=== PATIENT | female | born 1975 | race Caucasian/White ===

== ENCOUNTER 2023-12-09 07:00 | Outpatient (CLI) | payer MEDICAID, OTHER ==
[2023-12-09 20:51] LABS: BILIRUBIN,URINE NEGATIVE (NEGATIVE); GLUCOSE, URINE (UA) NEGATIVE (NEGATIVE); KETONES,URINE (UA) 15 mg/dL (NEGATIVE); LEUKOCYTE ESTERASE, URINE NEGATIVE (NEGATIVE); NITRITE,URINE NEGATIVE (NEGATIVE); OCCULT BLOOD,URINE NEGATIVE (NEGATIVE); PROTEIN,URINE NEGATIVE (NEGATIVE); UROBILINOGEN,URINE 0.2 (NORMAL) E.U./dL (NORMAL)
[2023-12-09 20:59] LABS: CLARITY,URINE CLEAR (CLEAR)
[2023-12-09 21:01] LABS: BACTERIA,URINE Moderate /HPF (None Seen); RBC,URINE 0-5 /HPF (0-5); SQUAMOUS EPITHELIAL CELL,UR MOD Squamous (<= Few); WBC,URINE 0-3 /HPF (0-5)
== END 2023-12-09 23:59 | disposition home or self-care (01) ==
LOC: LAB.S 07:00
PROVIDERS: ATTEND Physician Assistant Medical
DX: N39.0 Urinary tract infection, site not specified (principal); Z91.89 Other specified personal risk factors, not elsewhere classified
CPT/HCPCS: 81001; 87086; 87181

== ENCOUNTER 2023-12-28 10:43 | Emergency (ER) | payer OTHER ==
[2023-12-28 11:24] LABS: BILIRUBIN,URINE NEGATIVE (NEGATIVE); GLUCOSE, URINE (UA) NEGATIVE (NEGATIVE); KETONES,URINE (UA) 15 mg/dL (NEGATIVE); LEUKOCYTE ESTERASE, URINE MODERATE (NEGATIVE); NITRITE,URINE POSITIVE (NEGATIVE); OCCULT BLOOD,URINE TRACE-INTA (NEGATIVE); PROTEIN,URINE NEGATIVE (NEGATIVE); UROBILINOGEN,URINE 0.2 (NORMAL) E.U./dL (NORMAL)
[2023-12-28 11:28] LABS: CLARITY,URINE HAZY (CLEAR); HCG UR QUAL NEGATIVE
[2023-12-28 11:30] LABS: BASOPHILS # (AUTO) 0.1 10^3/uL (0.0-0.1); BASOPHILS % (AUTO) 0.4 %; EOSINOPHILS % (AUTO) 0.1 %; HCT - HEMATOCRIT 38.1 % (37.0-47.0); HGB - HEMOGLOBIN 12.5 g/dL (12.0-16.0); LYMPHOCYTES # (AUTO) 1.4 10^3/uL (1.5-3.5); LYMPHOCYTES % (AUTO) 12.2 %; MEAN CORPUSCULAR HGB CONC 32.8 g/dL (32.0-36.0); MEAN CORPUSCULAR VOLUME 91.4 fL (81.0-99.0); MEAN PLATELET VOLUME 9.1 fL (7.9-10.8); MONOCYTES # (AUTO) 0.8 10^3/uL (0.0-1.0); MONOCYTES % (AUTO) 6.7 %; NEUTROPHILS # (AUTO) 9.4 10^3/uL (1.5-6.6); NEUTROPHILS % (AUTO) 80.2 %; PLT - PLATELET COUNT 308 10^3/uL (130-450); RED BLOOD COUNT 4.17 10^6/uL (4.20-5.40); RED CELL DISTRIBUTION WIDTH 12.7 % (12.0-15.0); WHITE BLOOD COUNT 11.8 x10^3/uL (4.8-10.8)
[2023-12-28 11:33] LABS: RBC,URINE 0-5 /HPF (0-5); SQUAMOUS EPITHELIAL CELL,UR RARE Squamous (<= Few)
[2023-12-28 11:34] LABS: BACTERIA,URINE Moderate /HPF (None Seen)
[2023-12-28 11:43] LABS: ALBUMIN 4.7 g/dL (3.2-5.5); ALBUMIN/GLOBULIN RATIO 1.7 (1.0-2.2); ALKALINE PHOSPHATASE 47 IU/L (42-121); ALT ALANINE AMINOTRANSFERASE 21 IU/L (10-60); AST ASPARTATE AMINOTRANSFERASE 14 IU/L (10-42); BILIRUBIN,TOTAL 0.6 mg/dL (0.2-1.0); BUN - BLOOD UREA NITROGEN 7 mg/dL (6-20); CALCIUM 9.8 mg/dL (8.5-10.3); CARBON DIOXIDE - CO2 28 mmol/L (21-32); CHLORIDE 102 mmol/L (101-111); CREATININE 0.8 mg/dL (0.6-1.3); GFR - MDRD 77 (>89); GLUCOSE 109 mg/dL (74-104); LIPASE < 10 U/L (11-82); POTASSIUM 3.6 mmol/L (3.5-4.5); SODIUM 137 mmol/L (135-145); TOTAL PROTEIN 7.5 g/dL (6.4-8.9)
--- NOTE | 2023-12-28 13:08 | ED Physician Documentation ---
PD HPI ABD PAIN - Stated complaint Stated Complaint: LOWER BACK PX, ABD PX,FEVER - Chief complaint Chief Complaint: Abd Pain - History obtained from History obtained from: Patient - History of Present Illness Timing - onset: How many weeks ago (3) Timing - duration: Weeks (3) Timing - details: Gradual onset, Still present, Waxing and waning (did not im prove with initial abx nor second one. Was improving moderately with current cefdinir, but not better than moderately. Now worse flank pain and nausea.) Quality: Cramping, Aching, Pain Location: RLQ, Suprapubic Radiation: Right flank Associated symptoms: Nausea, Dysuria, Loss of appetite. No: Fever, Vomiting, Diarrhea, Vaginal bleeding, Vaginal dc Similar symptoms before: Diagnosis Recently seen: Clinic (initially telehealth visit with Rx for Bactrim by description of symptoms. Seen PCP with persisting symptoms andf Rx Augmentin with culture ordered. This showed resistance to AMpicillin and Bactrim. Rx Cefdinir and was some better but now worse again. Just finished abx yesterday.) Review of Systems Constitutional: reports: Chills, Myalgias, Fatigue Nose: denies: Rhinorrhea / runny nose, Congestion Throat: denies: Sore throat Respiratory: denies: Cough GI: reports: Abdominal Pain. denies: Nausea, Vomiting, Diarrhea : reports: Dysuria, Frequency. 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[employer]ICAL: Hysterectomy - Present Medications Home Medications: Ambulatory Orders Medication Instructions Recorded Confirmed Ciprofloxacin HCl [Cipro] 500 mg PO BID #20 tablet 12/28/23 Ondansetron Odt [Zofran] 4 mg TL Q6H PRN #10 tablet 12/28/23 Oxycodone HCl/Acetaminophen 1 each PO Q6H PRN #10 tablet 12/28/23 [Percocet 5-325 mg Tablet] Phenazopyridine HCl [Pyridium] 100 mg PO TID PRN #15 tablet 12/28/23 Promethazine [Phenergan] 25 mg PO Q6H PRN #10 tab 12/28/23 - Allergies Allergies/Adverse Reactions: Allergies Allergy/AdvReac Type Severity Reaction Status Date / Time No Known Drug Allergies Allergy Verified 12/28/23 10:59 - Social History Does the pt smoke?: No Smoking Status: Never smoker Does the pt drink ETOH?: No Does the pt have substance abuse?: Yes Substance Use and Type: Marijuana, CBD oil / Products - Immunizations Immunizations are current?: Yes - POLST Patient has POLST: No PD ED PE NORMAL - Vitals Vital signs reviewed: Yes - General General: Alert and oriented X 3, Well developed/nourished, Other (appears in moderately bad pain from right abd/flank area. ) - HEENT HEENT: Pharynx benign - Neck Neck: Supple, no meningeal sign, No adenopathy - Cardiac Cardiac: RRR, No murmur - Respiratory Respiratory: Clear bilaterally - Abdomen Abdomen: Normal bowel sounds, Soft, Non distended, No organomegaly, Other (tender suprapubic area and right flank to percussion. ) Results - Vitals Vitals: Oxygen O2 Source Room air - Labs Labs: Microbiology 12/28/23 11:05 Urine Culture - Preliminary Urine,Random Escherichia Coli Laboratory Tests 12/28/23 12/28/23 12/28/23 11:05 11:23 11:23 WBC 11.8 H RBC 4.17 L Hgb 12.5 Hct 38.1 MCV 91.4 MCH 30.0 MCHC 32.8 RDW 12.7 Plt Count 308 MPV 9.1 Neut # (Auto) 9.4 H Lymph # (Auto) 1.4 L [place] # (Auto) 0.8 Eos # (Auto) 0.0 Baso # (Auto) 0.1 Absolute Nucleated RBC 0.00 Nucleated RBC % 0.0 Sodium 137 Potassium 3.6 Chloride 102 Carbon Dioxide 28 Anion Gap 7.0 BUN 7 Creatinine 0.8 Estimated GFR (MDRD) 77 L Glucose 109 H Calcium 9.8 Total Bilirubin 0.6 AST 14 ALT 21 Alkaline Phosphatase 47 Total Protein 7.5 Albumin 4.7 Globulin 2.8 Albumin/Globulin Ratio 1.7 Lipase < 10 L Urine Color YELLOW Urine Clarity HAZY Urine pH 7.0 Ur Specific [place] <=1.005 Urine Protein NEGATIVE Urine Glucose (UA) NEGATIVE Urine Ketones 15 H Urine Occult Blood TRACE-INTA Urine Nitrite POSITIVE H Urine Bilirubin NEGATIVE Urine Urobilinogen 0.2 (NORMAL) Ur Leukocyte Esterase MODERATE H Urine RBC 0-5 Urine WBC 11-25 H Ur Squamous Epith Cells RARE Squamous Urine Bacteria Moderate H Ur Microscopic Review INDICATED Urine Culture Comments INDICATED Urine HCG, Qual NEGATIVE - Rads (name of study) abd/pelvic CT Relevant Findings:: Prelim report reviewed (ascending UTI with hydroureter and hydronephrosis without stone/obstruction. No other acute findings. ), EMP independent interpretation of test PD Medical Decision Making - ED course Complexity details: reviewed results (right hydroureter and nephrosis without stone, c/w ascending UTI. No other acute process. ), re-evaluated patient (improved pain with meds but got very nauseated from them. Has mild nausea prior but significant increase. Given antiemetics of Zofran and Inapsine with reasonable improvement but not gone. She would prefer not more meds at this time but to give time for opioids to decrease side effects. ), considered differential (seems UTI/pyelo. They are conceerned about stones or other procedss, given the difficulty clearing the infection. ), d/w patient Reviewed Lab Results: I did pull up and review her urine culture from Dec 11. It grew E Coli that was resistant to Bactrim and Ampicillin, sensitive to cephalosporins and quinolones. Reviewing her antibiotics so far, was initially Bactrim by Telemedicine, so reasonable to not have cleared. Then was Rx Augmentin pending culture, which was resistant toAmp, so changed to Cefdinir. Should have been sensitive by culture. Howeve did not clear. Initial culture sensitive to quinolones, so will give Cipro for now pending the newer culture that we will initiate today. Has reasonable labs here with normal renal function. Elewvated WBC. UA is very positive for still UTI. Departure - Departure Disposition: 01 Home, Self Care Clinical Impression: Right sided abdominal pain, Nausea and vomiting UTI (urinary tract infection) Qualifiers: Urinary tract infection type: acute pyelonephritis Qualified Code(s): N10 - Acute pyelonephritis Condition: Stable Record reviewed to determine appropriate education?: Yes Instructions: ED Kidney Infec Female Follow-Up: Radha Bobo PA [Primary Care Provider] - Prescriptions: Ciprofloxacin HCl [Cipro] 500 mg PO BID #20 tablet Oxycodone HCl/Acetaminophen [Percocet 5-325 mg Tablet] 1 each PO Q6H PRN #10 tablet PRN Reason: pain Promethazine [Phenergan] 25 mg PO Q6H PRN #10 tab PRN Reason: Nausea / Vomiting Phenazopyridine HCl [Pyridium] 100 mg PO TID PRN #15 tablet PRN Reason: Abdominal Pain Ondansetron Odt [Zofran] 4 mg TL Q6H PRN #10 tablet PRN Reason: Nausea / Vomiting Comments: Small frequent fluids for good hydration. Ciprofloxacin antibiotic twice daily as directed. I did a longer course doing sure gets cleared out well. I would suggest some anti-inflammatory such as ibuprofen or naproxen twice daily with food. To that add Tylenol 500 to 650 mg 4 times daily as needed for pains. To that add oxycodone every 4-6 hours if needed for worse pain. I would anticipate needing this just the first couple of days until the infection is improving more. Ondansetron if needed for nausea. I also prescribed some promethazine if though Zofran was not sufficient. Recheck if not improving well over the next couple of days and return if worse. I sent your prescriptions to [facility] in [place]. I am prescribing a short course of narcotic pain medication for you. These are potentially dangerous and addictive medications that should be used carefully. These medications may constipate you. Take an [id number] stool softener such as docusate twice daily with plenty of water while taking these medications. If you go 24 hours without a bowel movement, take [id number] MiraLAX, per package instructions. Do not drink or drive while taking these medications. If you received narcotic or sedating medications while in the emergency department do not drive for 24 hours. Store this medication in a safe, secure place and out of reach of children. It is a violation of federal law to give or sell this medication to another person or to use in a manner other than prescribed. The ED will not refill narcotic prescriptions, including prescriptions lost or stolen. You can dispose of unwanted medications at the [facility]'s office or at several pharmacies such as [facility]. Forms: PCP List Discharge Date/Time: 12/28/23 17:56
[2023-12-28] MEDS: HYDROmorphone 0.5 MG/0.5 ML SYRINGE IVP STA (14:02)
[2023-12-28] MEDS: CIPROFLOXACIN 400 MG/200 ML 400 MG/200 ML BAG IV STA (14:03)
[2023-12-28] MEDS: KETOROLAC 15 MG/ML VIAL IVP STA (14:03)
[2023-12-28] MEDS ORDERED: iohexoL-300 100 ML VIAL ONE (14:11)
[2023-12-28] MEDS: SODIUM CHLORIDE 0.9% 1,000 ML IV STA ×2 (14:21→16:12)
[2023-12-28] MEDS: ONDANSETRON 4 MG/2 ML VIAL IVP STA (15:55)
[2023-12-28 16:03] VITALS: BP 123/73; O2SAT 98
[2023-12-28] MEDS: HYDROmorphone 1 MG/ML CARPUJECT IVP STA (16:13)
--- NOTE | 2023-12-28 16:25 | CT Report ---
PROCEDURE: Abdomen/Pelvis W INDICATIONS: low abd/flank pain, UTI CONTRAST: 100mL Omni 300 TECHNIQUE: After the administration of intravenous contrast, a CT scan of the abdomen and pelvis was performed. Images were recorded and evaluated at appropriate window settings. Reformats: coronal and sagittal. F or radiation dose reduction, the following was used: automated exposure control, adjustment of mA and /or kV according to patient size. COMPARISON: None. FINDINGS: Image quality: Suboptimal due to metallic artifact. Lower chest: Unremarkable. Liver: No solid mass. Gallbladder and biliary tree: No radiopaque stones or wall thickening. No biliary dilation. Spleen: No splenomegaly. Pancreas: No pancreatic ductal dilation. Adrenals: No adrenal nodule. Kidneys and ureters: Mild right-sided hydronephrosis and hydroureter, with a slightly delayed nephrog yamilex. Mild fat stranding at the renal pelvis. No obstructing stone identified. Stomach, bowel and peritoneum: No bowel distension. No pathologic free fluid. Lymph nodes: No central or retroperitoneal adenopathy. Vessels: No infrarenal aortic aneurysm. PELVIS Reproductive organs: Unremarkable. Bladder: No abnormal wall thickening, accounting for underdistention. Pelvic lymph nodes: No pelvic adenopathy by size criteria. Bones: No aggressive osseous abnormality. Dystrophic changes of the right iliac bone. Surgical fusion of the thoracal lumbar spine. Other: No significant ventral or inguinal hernia. IMPRESSION: Ascending urinary tract infection, with mild right-sided hydronephrosis and hydroureter, with a sligh tly delayed nephrogram and no obstructing stone visualized. The hydronephrosis is presumably due to b acteriostatic products, significantly less likely a non-radioopaque stone, which is incredibly rare. Early pyonephritis is a consideration. Reviewed by: Juan Fisher MD on 12/28/2023 4:23 PM PST Approved by: Juan Fisher MD on 12/28/2023 4:23 PM PST Station ID: [id number]
[2023-12-28] MEDS: iohexoL-300 100 ML VIAL IVP ONE (16:40)
[2023-12-28] MEDS: DROPERIDOL 5 MG/2 ML VIAL IVP STA (16:56)
[2023-12-28] MEDS: ONDANSETRON ODT 4 MG Prepack 2 TL PRN (17:47)
[2023-12-28] MEDS: oxyCODONE/ACET 5/325 Prepack 4 PO STA (17:47)
== END 2023-12-28 17:56 | disposition home or self-care (01) ==
LOC: ED 10:43
DX: N10 Acute pyelonephritis (principal)
CPT/HCPCS: 36415; 74177; 80053; 81001; 81025; 83690; 85025; 87086; 87181; 96365; 96375; 96376; 99284; 99285; J1170; Q9967; 81003

== ENCOUNTER 2024-05-06 07:00 | Outpatient (CLI) | payer OTHER | END 2024-05-06 23:59 | disposition home or self-care (01) | LOC: LAB.S 07:00 | PROVIDERS: ATTEND Physician Assistant Medical | DX: N39.0 Urinary tract infection, site not specified (principal) | CPT/HCPCS: 87086 ==

== ENCOUNTER 2024-07-13 08:00 | Outpatient (CLI) | payer OTHER ==
[2024-07-13 15:23] LABS: BILIRUBIN,URINE NEGATIVE (NEGATIVE); GLUCOSE, URINE (UA) NEGATIVE (NEGATIVE); KETONES,URINE (UA) NEGATIVE (NEGATIVE); LEUKOCYTE ESTERASE, URINE SMALL (NEGATIVE); NITRITE,URINE NEGATIVE (NEGATIVE); OCCULT BLOOD,URINE TRACE-INTA (NEGATIVE); PROTEIN,URINE NEGATIVE (NEGATIVE); UROBILINOGEN,URINE 0.2 (NORMAL) E.U./dL (NORMAL)
[2024-07-13 15:59] LABS: CLARITY,URINE CLEAR (CLEAR)
[2024-07-13 16:00] LABS: BACTERIA,URINE Many /HPF (None Seen); RBC,URINE 0-5 /HPF (0-5); SQUAMOUS EPITHELIAL CELL,UR FEW Squamous (<= Few)
== END 2024-07-13 23:59 | disposition home or self-care (01) ==
LOC: LAB.S 08:00
PROVIDERS: ATTEND Nurse Practitioner Gerontology
DX: N39.0 Urinary tract infection, site not specified (principal)
CPT/HCPCS: 81001